=== PATIENT | female | born 1985 | race American Indian/Alaskan Native ===

== ENCOUNTER 2016-10-07 14:29 | Emergency (ER) | payer SELFPAY ==
[2016-10-07 15:17] VITALS: BP 136/85
== END 2016-10-07 23:38 | disposition left against medical advice (07) ==
LOC: ED 14:29
DX: K08.89 Other specified disorders of teeth and supporting structures (principal); F17.200 Nicotine dependence, unspecified, uncomplicated; Z53.21 Procedure and treatment not carried out due to patient leaving prior to being seen by health care provider